=== PATIENT | male | born 1970 | race Caucasian/White ===

== ENCOUNTER 2017-10-14 23:55 | Emergency (ER) | payer SELFPAY ==
[~2017-10-14] VITALS: Ht 172.7 cm; Wt 74.8 kg
[2017-10-15 00:42] VITALS: BP 113/69
[2017-10-15] MEDS ORDERED: SULFAMETH/TRIMETH 800/160 MG 1 UDTAB TABLET PO ONE ×2 (02:26→02:30)
[2017-10-15] MEDS ORDERED: CEPHALEXIN MONOHYDRATE 500 MG CAPSULE PO ONE ×2 (02:26→02:30)
== END 2017-10-15 02:46 | disposition home or self-care (01) ==
LOC: ER 10-15 00:01
DX: L03.116 Cellulitis of left lower limb (principal); G89.29 Other chronic pain
CPT/HCPCS: 99283; A4606; Z7610